=== PATIENT | female | born 1995 | race Caucasian/White ===

== ENCOUNTER → 2022-12-17 13:12 | Outpatient (BNVA) | payer BC, MEDICAID, SELFPAY | PROVIDERS: Visit Provider Orthopaedic Surgery | DX: M54.50 Low back pain, unspecified (principal); R10.2 Pelvic and perineal pain; Z87.81 Personal history of (healed) traumatic fracture; Z96.7 Presence of other bone and tendon implants; M48.04 Spinal stenosis, thoracic region; M51.34 Other intervertebral disc degeneration, thoracic region | CPT/HCPCS: 72110; 72190; 99204 ==

== ENCOUNTER 2023-05-25 16:25 | Outpatient (CLI) | payer BC, MEDICAID, SELFPAY ==
--- NOTE | 2023-05-25 16:45 | MR_ITS ---
WS: [id number] MRI LUMBAR SPINE NONCONTRAST HISTORY: Back pain COMPARISON: Lumbar radiograph 12/17/2022 TECHNIQUE: Sagittal and axial multisequence imaging is submitted. Posterior lumbar alignment is normal. There is very slight anterior wedging of T12, L1 and L2. No mar row edema is identified. These are not acute fractures. These may be related to Schmorl's nodes defec ts. Otherwise the disc spaces and vertebral body heights are well-maintained. Conus terminates normally at L1-2 disc level. L1-L2: Mild annular disc bulging with slight encroachment upon the ventral thecal sac. No stenosis. L2-L3: Mild annular disc bulging. Mild encroachment upon the foramina. Mild foraminal stenosis. L3-L4: Mild annular disc bulging and facet arthritis. Very mild foraminal encroachment. L4-L5: Mild encroachment upon the ventral thecal sac with mild facet and ligamentum flavum hypertroph y. Mild central, bilateral subarticular recess and foraminal stenosis. L5-S1: Shallow central disc protrusion. Additional broad-based LEFT foraminal disc protrusion does co ntact but not displace the LEFT exiting L5 nerve root. Mild LEFT foraminal stenosis. IMPRESSION: 1. Quality of this examination is limited due to patient motion. Patient was unable to remain still for this examination. 2. Very mild anterior wedging of T12, L1 and L2. Loss of height may be related to Schmorl node defec ts or prior compression fractures. There is no marrow edema to suggest this is acute. There is no ret ropulsion. 3. Mild LEFT foraminal stenosis at L5-S1 due to broad-based disc protrusion. Slight contact on the e xiting LEFT L5 nerve root. 4. Additional mild foraminal narrowing at L2-3 and L3-4 with mild facet arthritis. 5. L4-5: Very mild central, subarticular recess and foraminal stenosis due to disc and osteophyte di sease.
== END 2023-05-25 16:26 | disposition home or self-care (01) ==
LOC: RAD 16:25
PROVIDERS: Visit Provider Orthopaedic Surgery
DX: M54.9 Dorsalgia, unspecified (principal); M51.27 Other intervertebral disc displacement, lumbosacral region; M48.061 Spinal stenosis, lumbar region without neurogenic claudication
CPT/HCPCS: 72148